=== PATIENT | male | born 1935 | race Caucasian/White ===

== ENCOUNTER → 2018-03-26 15:34 | Outpatient (CLI) | payer MEDICARE, SELFPAY ==
--- NOTE | 2018-03-26 | DI.US.S_ITS ---
PROCEDURE: US ABDOMEN LIMITED INDICATIONS: Bilateral inguinal pain TECHNIQUE: Real-time focused scanning was performed of the inguinal region, with image documentation. COMPARISON: None. FINDINGS: Both inguinal regions were evaluated in the supine and standing positions with and without Valsalva maneuver. No evidence of inguinal hernia seen on either side. IMPRESSION: Negative for inguinal hernia. Source of abdominal pain not seen by this exam. Dictated by: Aubrey Mclean M.D. on 03/26/2018 at 16:15 Approved by: Aubrey Mclean M.D. on 03/26/2018 at 16:16
== END ==
PROVIDERS: PCP Family Medicine; Visit Provider Specialist
DX: R10.2 Pelvic and perineal pain (principal)
CPT/HCPCS: 36415; 76705; 84153

== ENCOUNTER → 2018-08-02 12:44 | Outpatient (CLI) | payer MEDICARE, SELFPAY ==
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
== END ==
PROVIDERS: PCP Family Medicine; Visit Provider Physician Assistant
DX: M25.571 Pain in right ankle and joints of right foot (principal)
CPT/HCPCS: 73610

== ENCOUNTER → 2018-09-07 09:06 | Outpatient (CLI) | payer MEDICARE, SELFPAY ==
[2018-09-07 11:06] LABS: Thyroid Stimulating Hormone 2.66 uIU/mL (0.47-4.68)
[2018-09-12 10:37] LABS: Lipoprofile NMR SEE SEPARATE REPORTS
== END ==
PROVIDERS: PCP Family Medicine; Visit Provider Specialist
DX: E78.2 Mixed hyperlipidemia (principal); I47.1 Supraventricular tachycardia; R00.1 Bradycardia, unspecified
CPT/HCPCS: 36415; 83704; 84443

== ENCOUNTER → 2018-09-19 13:46 | Outpatient (CLI) | payer MEDICARE, SELFPAY ==
[2018-09-19 14:34] LABS: Alanine Aminotransferase 26 IU/L (21-72); Albumin 4.2 g/dL (3.5-5.0); Albumin Globulin Ratio 1.5 (1.0-2.8); Alkaline Phosphatase 60 U/L (38-126); Aspartate Aminotransferase 24 IU/L (17-59); BUN Creatinine Ratio 21.4 (6-22); Bilirubin Total 1.1 mg/dL (0.2-1.3); Blood Urea Nitrogen 15 mg/dL (9-20); Calcium 8.9 mg/dL (8.4-10.2); Carbon Dioxide 25 mmol/L (22-32); Chloride 106 mmol/L (98-107); Estimated Glomerular Filt Rate > 60.0 mL/min (>60); Globulin 2.8 g/dL (1.7-4.1); Glucose 124 mg/dL (80-110); HEMOLYSIS 15 (0-50); Potassium 4.3 mmol/L (3.4-5.1); Sodium 142 mmol/L (137-145)
== END ==
PROVIDERS: Family Provider Family Medicine; PCP Family Medicine; Visit Provider Specialist
DX: I47.1 Supraventricular tachycardia (principal)
CPT/HCPCS: 36415; 80053

== ENCOUNTER 2019-04-22 15:11 | Emergency (ER) | payer MEDICARE, SELFPAY ==
--- NOTE | 2019-04-22 15:19 | DI.CT.S_ITS ---
PROCEDURE: CT HEAD/BRAIN WO CON INDICATIONS: feels funny, dizzy, pain in back of head TECHNIQUE: Noncontrast 4.5 mm thick angled axial sections acquired from the foramen magnum to the vertex, with coronal and sagittal reformats. For radiation dose reduction, the following was used: automated exposure control, adjustment of mA and/or kV according to patient size. COMPARISON: [facility], CT, HEAD WITHOUT CONTRAST, 02/09/2016, 19:19. FINDINGS: Image quality: Excellent. CSF spaces: Basal cisterns are patent. No extra-axial fluid collections. The ventricles are symmetric in size and shape. Brain: No intracranial bleeds or masses. There is cerebral volume loss for age, with resultant ventricular and sulcal prominence. There are periventricular and deep white matter chronic small vessel ischemic changes. There is intracranial internal carotid artery atherosclerosis. Diffuse ectasia of the basal artery is present, as before. Skull and face: Calvarium and visualized facial bones appear intact, without suspicious lesions. Sinuses: Visualized sinuses and mastoids are clear. IMPRESSION: No acute intracranial abnormality. Dictated by: Morena Osuna M.D. on 04/22/2019 at 14:34 Approved by: Morena Osuna M.D. on 04/22/2019 at 14:35
[2019-04-22 15:24] VITALS: BP 148/92; PULSE 59; RESP 22; TEMP 36.7; O2SAT 97; BMI 29.2
[2019-04-22] MEDS: SODIUM CHLORIDE 0.9% 1,000 ML 150 ML IV (16:00)
[2019-04-22 16:01] LABS: Add Manual Diff / Slide Review NO; Basophils Absolute Auto 0 /uL (0-100); Basophils Percent Auto 1.2 % (0-2); Eosinophils Absolute Auto 200 /uL (0-450); Eosinophils Percent Auto 5.8 % (2-4); Hematocrit 42.1 % (41-53); Hemoglobin 14.3 g/dL (13.5-17.5); Lymphocytes Absolute Auto 2100 /uL (1100-4500); Lymphocytes Percent Auto 50.9 % (25-40); Mean Corpuscular HGB Conc 33.9 % (30-36); Mean Corpuscular Hemoglobin 32.2 PG (26-34); Monocytes Absolute Auto 300 /uL (0-900); Monocytes Percent Auto 8.3 % (3-14); Neutrophils Absolute Auto 1400 /uL (1500-7000); Neutrophils Percent Auto 33.8 % (50-75); Platelet Count 193 X10^3/uL (150-400); Red Blood Cell Count 4.43 X10^6/uL (4.5-5.9); Red Cell Distribution Width 13.1 % (11.6-14.8); White Blood Cell Count 4.1 X10^3/uL (4.5-11.0)
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
[2019-04-22 16:13] LABS: BUN Creatinine Ratio 18.8 (6-22); Blood Urea Nitrogen 15 mg/dL (9-20); Calcium 8.7 mg/dL (8.4-10.2); Carbon Dioxide 26 mmol/L (22-32); Chloride 108 mmol/L (98-107); Estimated Glomerular Filt Rate > 60.0 mL/min (>60); Glucose 124 mg/dL (80-110); HEMOLYSIS < 15 (0-50); Sodium 141 mmol/L (137-145)
[2019-04-22 16:16] LABS: Prothrombin Time 11.3 SECONDS (10.1-12.7)
[2019-04-22 16:19] LABS: PTT Partial Thromboplastin Tim 32 SECONDS (26.4-36.2)
[2019-04-22 17:35] VITALS: BP 117/62; BP 123/73; BP 135/74; PULSE 48; PULSE 53; PULSE 56
[2019-04-22 17:50] VITALS: PULSE 56; RESP 17; O2SAT 97
--- NOTE | 2019-04-22 17:53 | DI.MRI.S_ITS ---
PROCEDURE: MR HEAD/BRAIN WO CON INDICATIONS: dizziness TECHNIQUE: Non-contrast axial T1 spin echo, axial T2 fast spin echo, sagittal and axial FLAIR, coronal T2 fast spin echo, axial gradient echo, axial diffusion and ADC through the brain. COMPARISON: [facility], MR, BRAIN WITHOUT CONTRAST, 09/21/2009, 18:41. FINDINGS: Image quality: Excellent. CSF spaces: Ventricles appear symmetric in size and shape. Basal cisterns are patent. No extra-axial fluid collections. Brain: No intracranial bleeds or mass effects. There is cerebral volume loss for age. There are periventricular and deep white matter chronic small vessel ischemic changes. Brainstem appears normal. Diffusion-weighted images show no acute ischemic insults. No chronic ischemic insults. Normal intravascular flow voids are present. Skull and face: Calvarial bone marrow is normal in signal. Orbits are normal. There is right anterior scalp fat signal intensity lesion, however grossly unchanged appearance since 09/21/09 Sinuses: Mild left maxillary sinus disease IMPRESSION: No acute intracranial signal abnormality. No evidence of acute ischemia. Mild left maxillary sinus disease. Dictated by: Kaiser Atkins M.D. on 04/22/2019 at 19:09 Approved by: Kaiser Atkins M.D. on 04/22/2019 at 19:13
[2019-04-22 18:30] VITALS: BP 119/78; PULSE 49; RESP 19; O2SAT 98
[2019-04-22 19:54] VITALS: BP 134/76; PULSE 67; RESP 17; O2SAT 96
== END 2019-04-22 19:56 | disposition home or self-care (01) ==
PROVIDERS: Emergency Provider Emergency Medicine; Family Provider Family Medicine; PCP Family Medicine
DX: R42 Dizziness and giddiness (principal); I10 Essential (primary) hypertension
CPT/HCPCS: 36591; 70450; 70551; 80048; 81003; 85025; 85610; 85730; 93005; 96360; 96361; 99283; 99285

== ENCOUNTER → 2019-07-08 09:04 | Outpatient (CLI) | payer MEDICARE, SELFPAY ==
--- NOTE | 2019-07-08 | DI.ECHO.S_ITS ---
[facility] +---------+ : : [address] [place] : : : : [id number] : : : : Phone: [phone] Echocardiogram Report + + :Name: OREN LEMON Study Date: 07/08/2019 Height: 67 in : :[facility] Exam Location: IS Weight: 204 lb : : Gender: Male BSA: 2.0 m2 : :: 1935 Age: 84 yrs BP: 122/80 mmHg: :Reason For Study: SVT : :Ordering Physician: Carlos : :J[place] Performed By: Sherice Page : + + Interpretation Summary Left ventricular systolic function is low normal with the ejection fraction estimated to be 50-55% with a mild dyssynchronous contraction pattern, consistent with a conduction abnormality, but no focal wall motion abnormalities, and appears similar to the previous study. The left ventricle is borderline dilated with a calculated end-diastolic volume of 123 mL but is likely unchanged from the previous study. Diastolic parameters suggest a relaxation abnormality of the left ventricle, consistent with probable normal filling pressures and is likely unchanged compared to the previous study. The right ventricle is at the upper limits of normal in size and systolic function is borderline reduced but is likely unchanged compared to the previous study. Pulmonary artery pressures cannot be estimated because of the lack of a measurable TR jet velocity but the IVC suggests a CVP of around 3 mmHg. The left atrium is moderately dilated while right atrial size is normal and both are unchanged compared to the previous study. The aortic valve is slightly calcified with mild to moderate aortic regurgitation that is unchanged compared to the previous study. There is mild pulmonic regurgitation that is more prominent. There is no other significant valvular heart disease. The aortic root is mildly dilated and the ascending aorta is moderately enlarged. Both measure slightly larger compared to the previous study. The patient was in sinus bradycardia with heart rates between 40-45 bpm during the exam which is slightly slower compared to the previous study. Procedure: A two-dimensional transthoracic echocardiogram with color flow and Doppler was performed. The study quality was technically adequate. Comparison is made with the echocardiogram of 05/11/2014. The patient was in sinus bradycardia with heart rates between 40-45 bpm during the exam. This is slightly slower compared to the previous study. Left Ventricle: The left ventricle is borderline dilated. With a calculated end-diastolic volume of 123 mL but is likely unchanged from the previous study. There is normal left ventricular wall thickness. Left ventricular systolic function is low normal. The ejection fraction is estimated to be 50- 55%. There is a mild dyssynchronous contraction pattern, consistent with a conduction abnormality. There are no focal wall motion abnormalities. Diastolic parameters suggest a relaxation abnormality of the left ventricle, consistent with probable normal filling pressures. This is unchanged compared to the previous study. Right Ventricle: The right ventricle is at the upper limits of normal in size. Right ventricular systolic function is borderline reduced. This is likely unchanged compared to the previous study. Atria: The left atrium is moderately dilated. Right atrial size is normal. This is unchanged compared to the previous study. There is no Doppler evidence for an interatrial shunt. Mitral Valve: The mitral valve leaflets appear mildly thickened, but open well. There is trace mitral regurgitation. Aortic Valve: The aortic valve is trileaflet. The aortic valve is slightly calcified. The aortic valve opens well. There is mild to moderate aortic regurgitation. This is unchanged compared to the previous study. Tricuspid Valve: The tricuspid valve is normal in structure and function. There is trace tricuspid regurgitation. Pulmonary artery pressures cannot be estimated because of the lack of a measurable TR jet velocity but the IVC suggests a CVP of around 3 mmHg. Pulmonic Valve: The pulmonic valve is not well seen, but is grossly normal. There is mild pulmonic regurgitation. This is more prominent compared to the previous study. There is no other significant valvular heart disease. Great Vessels: The aortic root is mildly dilated. The ascending aorta is moderately enlarged. This is slightly larger compared to the previous study. The pulmonary artery is not well visualized, but is probably normal size. The IVC is of normal diameter and collapses greater than 50% with a sniff. This suggests a low right atrial pressure of 3 mm Hg. Pericardium/ Pleura There is no pericardial effusion. There is no pleural effusion. MMode/2D Measurements & Calculations LVIDd: 5.5 cm LVOT diam: 2.3 cm LVIDs: 3.5 cm Ao root diam: 4.3 cm FS: 36.9 % asc Aorta Diam: 4.4 cm EPSS: 1.5 cm IVSd: 0.97 cm LVPWd: 0.97 cm LV stout. diameter/BSA (cm/m^2): 2.7 LV sys. diameter/BSA (cm/m^2): 1.7 LA A2 area: 27.7 cm2 RA long axis: 5.9 cm LA A4 area: 20.8 cm2 RA area: 19.8 cm2 LA length (vol): 5.3 cm RA vol: 56.6 ml LA vol: 92.3 ml RA : 27.8 ml/m2 LA vol index: 45.3 ml/m2 TAPSE: 2.4 cm Doppler Measurements & Calculations Ao V2 max: 115.8 cm/sec LVOT Max Balta: 85.8 cm/sec Ao V2 mean: 85.8 cm/sec LV V1 max P.9 mmHg Ao max P.4 mmHg LV V1 VTI: 20.7 cm Ao mean P.2 mmHg ANNE(I,D): 3.3 cm2 Ao V2 VTI: 26.0 cm ANNE(V,D): 3.1 cm2 sev ratio: 0.80 ANNE indexed to BSA (cm^2/m^2): 1.6 MV E max balta: 47.1 cm/sec TR max balta: 203.9 cm/sec MV A max balta: 74.0 cm/sec TR max P.6 mmHg MV E/A: 0.64 PA V2 max: 50.5 cm/sec Med Peak E' Balta: 3.1 cm/sec PA V2 mean: 36.1 cm/sec E/E' med: 15.2 PA mean P.56 mmHg Lat Peak E' Balta: 5.2 cm/sec PA Accel Time: 0.12 sec E/E' lat: 9.1 E/e' average: 12.2 MV dec time: 0.40 sec MV P1/2t: 115.7 msec MV P1/2t max balta: 47.4 cm/sec SV(LVOT): 86.7 ml MVA(P1/2t): 1.9 cm2 Reading Physician:PM
[2019-07-08 11:42] LABS: Alanine Aminotransferase 24 IU/L (21-72); Albumin Globulin Ratio 1.4 (1.0-2.8); Alkaline Phosphatase 72 U/L (38-126); Aspartate Aminotransferase 25 IU/L (17-59); BUN Creatinine Ratio 24.3 (6-22); Bilirubin Total 1.1 mg/dL (0.2-1.3); Blood Urea Nitrogen 17 mg/dL (9-20); Calcium 9.2 mg/dL (8.4-10.2); Carbon Dioxide 28 mmol/L (22-32); Chloride 105 mmol/L (98-107); Estimated Glomerular Filt Rate > 60.0 mL/min (>60); Globulin 2.9 g/dL (1.7-4.1); Glucose 99 mg/dL (80-110); HEMOLYSIS < 15 (0-50); Magnesium 2.1 mg/dL (1.6-2.3); Potassium 4.9 mmol/L (3.4-5.1); Sodium 139 mmol/L (137-145); Total Protein 6.9 g/dL (6.3-8.2)
[2019-07-10 10:33] LABS: Lipoprofile NMR SEE SEPARATE REPORTS
== END ==
PROVIDERS: PCP Family Medicine; Visit Provider Specialist
DX: I35.1 Nonrheumatic aortic (valve) insufficiency (principal); I37.1 Nonrheumatic pulmonary valve insufficiency; I47.1 Supraventricular tachycardia; E78.2 Mixed hyperlipidemia; I10 Essential (primary) hypertension
CPT/HCPCS: 36415; 80053; 83704; 83735; 93306

== ENCOUNTER → 2020-04-23 07:43 | Outpatient (CLI) | payer MEDICARE, SELFPAY ==
[2020-04-23 08:27] LABS: Add Manual Diff / Slide Review NO; Basophils Absolute Auto 0 /uL (0-100); Basophils Percent Auto 0.9 % (0-2); Eosinophils Absolute Auto 400 /uL (0-450); Eosinophils Percent Auto 7.6 % (2-4); Hematocrit 41.8 % (41-53); Hemoglobin 14.7 g/dL (13.5-17.5); Lymphocytes Absolute Auto 3100 /uL (1100-4500); Lymphocytes Percent Auto 54.1 % (25-40); Mean Corpuscular HGB Conc 35.2 % (30-36); Mean Corpuscular Hemoglobin 33.7 PG (26-34); Mean Corpuscular Volume 95.6 fL (80-100); Monocytes Absolute Auto 500 /uL (0-900); Monocytes Percent Auto 8.4 % (3-14); Neutrophils Absolute Auto 1700 /uL (1500-7000); Platelet Count 173 X10^3/uL (150-400); Red Blood Cell Count 4.38 X10^6/uL (4.5-5.9); Red Cell Distribution Width 12.8 % (11.6-14.8); White Blood Cell Count 5.7 X10^3/uL (4.5-11.0)
[2020-04-23 08:44] LABS: Alanine Aminotransferase 16 IU/L (<50); Albumin 3.7 g/dL (3.5-5.0); Albumin Globulin Ratio 1.4 (1.0-2.8); Alkaline Phosphatase 65 U/L (38-126); Aspartate Aminotransferase 21 IU/L (17-59); BUN Creatinine Ratio 28.4 (6-22); Bilirubin Total 1.2 mg/dL (0.2-1.3); Blood Urea Nitrogen 19 mg/dL (9-20); Calcium 9.2 mg/dL (8.4-10.2); Carbon Dioxide 25 mmol/L (22-32); Chloride 109 mmol/L (98-107); Cholesterol 133 mg/dL (140-199); Estimated Glomerular Filt Rate > 60.0 mL/min (>60); Globulin 2.6 g/dL (1.7-4.1); Glucose 103 mg/dL (80-110); HDL Cholesterol 48 mg/dL (40-60); HEMOLYSIS < 15 (0-50); LDL Cholesterol Calculated 70 mg/dL (<100); Potassium 4.4 mmol/L (3.4-5.1); Sodium 139 mmol/L (137-145); Total Protein 6.3 g/dL (6.3-8.2); Triglycerides 75 mg/dL (35-150)
[2020-04-23 08:55] LABS: Vitamin D 25 Hydroxy (D3) 22.3 ng/mL (30.0-100.0)
[2020-04-23 09:10] LABS: TSH w/ Reflex to FT4 3.03 uIU/mL (0.47-4.68)
[2020-04-23 09:11] LABS: Prostate Specific Antigen Scrn 2.34 ng/mL (0.1-4.0)
== END ==
PROVIDERS: PCP Family Medicine; Referring Provider Family Medicine; Visit Provider Family Medicine
DX: Z12.5 Encounter for screening for malignant neoplasm of prostate (principal); Z13.220 Encounter for screening for lipoid disorders; Z13.29 Encounter for screening for other suspected endocrine disorder; E55.9 Vitamin D deficiency, unspecified; R55 Syncope and collapse; E78.5 Hyperlipidemia, unspecified; I10 Essential (primary) hypertension
CPT/HCPCS: 36415; 80053; 80061; 82306; 84443; 85025; G0103

== ENCOUNTER → 2020-07-27 07:41 | Outpatient (CLI) | payer MEDICARE, SELFPAY | PROVIDERS: PCP Family Medicine; Referring Provider Specialist; Visit Provider Specialist | DX: N40.0 Benign prostatic hyperplasia without lower urinary tract symptoms (principal) | CPT/HCPCS: 36415; 84153 ==

== ENCOUNTER → 2020-08-26 08:05 | Outpatient (CLI) | payer MEDICARE, SELFPAY ==
[2020-08-26 09:36] LABS: Alanine Aminotransferase 19 IU/L (<50); Albumin 3.8 g/dL (3.5-5.0); Albumin Globulin Ratio 1.5 (1.0-2.8); Alkaline Phosphatase 72 U/L (38-126); Aspartate Aminotransferase 25 IU/L (17-59); BUN Creatinine Ratio 26.6 (6-22); Bilirubin Total 1.1 mg/dL (0.2-1.3); Blood Urea Nitrogen 17 mg/dL (9-20); Calcium 8.9 mg/dL (8.4-10.2); Carbon Dioxide 31 mmol/L (22-32); Chloride 106 mmol/L (98-107); Estimated Glomerular Filt Rate > 60.0 mL/min (>60); Globulin 2.6 g/dL (1.7-4.1); Glucose 101 mg/dL (80-110); HEMOLYSIS < 15 (0-50); Magnesium 2.2 mg/dL (1.6-2.3); Potassium 4.4 mmol/L (3.4-5.1); Sodium 138 mmol/L (137-145); Total Protein 6.4 g/dL (6.3-8.2)
[2020-09-07 14:56] LABS: LDL Particle SEE SEPARATE REPORTS
== END ==
PROVIDERS: PCP Family Medicine; Referring Provider Family Medicine; Visit Provider Specialist
DX: E78.2 Mixed hyperlipidemia (principal); I47.1 Supraventricular tachycardia; I10 Essential (primary) hypertension
CPT/HCPCS: 36415; 80053; 80061; 83704; 83735

== ENCOUNTER → 2021-08-24 10:09 | Outpatient (CLI) | payer MEDICARE, SELFPAY ==
[2021-08-24 11:47] LABS: Prostate Specific Antigen 4.22 ng/mL (0.10-4.00)
== END ==
PROVIDERS: PCP Family Medicine; Referring Provider Specialist; Visit Provider Specialist
DX: N40.0 Benign prostatic hyperplasia without lower urinary tract symptoms (principal); Z80.42 Family history of malignant neoplasm of prostate
CPT/HCPCS: 36415; 84153

== ENCOUNTER → 2021-09-09 08:43 | Outpatient (CLI) | payer MEDICARE, SELFPAY ==
[2021-09-09 10:07] LABS: Alanine Aminotransferase 15 IU/L (<50); Albumin 3.7 g/dL (3.5-5.0); Albumin Globulin Ratio 1.4 (1.0-2.8); Alkaline Phosphatase 61 U/L (38-126); Aspartate Aminotransferase 19 IU/L (17-59); BUN Creatinine Ratio 18.7 (6-22); Blood Urea Nitrogen 14 mg/dL (9-20); Calcium 8.9 mg/dL (8.4-10.2); Carbon Dioxide 29 mmol/L (22-32); Chloride 106 mmol/L (98-107); Cholesterol 147 mg/dL (140-199); Estimated Glomerular Filt Rate > 60.0 mL/min (>60); Globulin 2.6 g/dL (1.7-4.1); Glucose 104 mg/dL (80-110); HDL Cholesterol 57 mg/dL (40-60); HEMOLYSIS < 15 (0-50); LDL Cholesterol Calculated 74 mg/dL (<100); Potassium 4.2 mmol/L (3.4-5.1); Sodium 138 mmol/L (137-145); Total Protein 6.3 g/dL (6.3-8.2); Triglycerides 79 mg/dL (35-150)
== END ==
PROVIDERS: PCP Family Medicine; Referring Provider Physician Assistant Medical; Visit Provider Physician Assistant Medical
DX: E78.00 Pure hypercholesterolemia, unspecified (principal)
CPT/HCPCS: 36415; 80053; 80061

== ENCOUNTER → 2021-09-15 15:45 | Outpatient (CLI) | payer MEDICARE, SELFPAY ==
--- NOTE | 2021-09-15 | DI.ECHO.S_ITS ---
[facility] +---------+ : : [address] : : : : [id number] : : : : Phone: [phone]+ Echocardiogram Report + + :Name: OREN LEMON Study Date: 09/15/2021 Height: 68 in : :[facility] ReadingLocation: Weight: 182 lb : : Gender: Male BSA: 2.0 m2 : :: 1935 Age: 86 yrs BP: 136/85 mmHg: :Reason For Study: DILATED CARDIOMYOPATHY : :Ordering Physician: MICHAEL, : :MANGO Performed By: Kaci Voss : :Referring: MANGO RODRIGUEZ : + + Interpretation Summary Left ventricular systolic function remains at the lower limits of normal with an estimated ejection fraction of 50 to 55% with borderline global hypokinesis but no obvious focal wall motion abnormality. Left ventricular size and wall thickness appear normal and are likely unchanged from the previous exam. There is a probable diastolic relaxation abnormality with probable normal filling pressures that are likely unchanged from the previous exam. The right ventricle is normal in size with systolic function at the lower limits of normal but unchanged from the previous study. Right ventricular systolic pressure is estimated at 23 mmHg with a CVP of 3 mmHg, and is likely unchanged from the previous exam. Both atria are normal in size. Left atrial size has significantly decreased since the previous study. The aortic valve is mildly calcified with mild aortic regurgitation that is unchanged to slightly less prominent compared to the previous study. There is mild pulmonic valve regurgitation that is also unchanged from the previous exam. The aortic root and ascending aorta are mild to moderately enlarged but unchanged from the previous study. Patient was in sinus bradycardia at 52-63 bpm which is slightly faster compared to the previous exam. Procedure: A two-dimensional transthoracic echocardiogram with color flow and Doppler was performed. The study quality was technically adequate. Comparison is made with the echocardiogram of 07/18/2019. The patient was in sinus bradycardia with heart rates between 52-63 bpm during the exam. Left Ventricle: The left ventricle is normal in size. The estimated left ventricular end diastolic volume is 71 ml. There is mild concentric left ventricular hypertrophy. Left ventricular systolic function is low normal. The ejection fraction is estimated to be 50-55%. There is borderline global hypokinesis of the left ventricle. There are no focal wall motion abnormalities. This is unchanged compared to the previous study. Diastolic parameters suggest a relaxation abnormality of the left ventricle, consistent with probable normal filling pressures. This is unchanged compared to the previous study. Right Ventricle: The right ventricle is normal size. Right ventricular systolic function is at the lower limits of normal. This is unchanged compared to the previous study. Atria: Both atria are normal in size. The left atrium has significantly decreased in size since the prior echo exam. There is no Doppler evidence for an interatrial shunt. Mitral Valve: The mitral valve leaflets appear mildly thickened, but open well. There is trace mitral regurgitation. Aortic Valve: The aortic valve is trileaflet. The aortic valve is mildly calcified. The aortic valve opens well. There is no aortic valve stenosis. There is mild aortic regurgitation. This is unchanged to slightly less prominent compared to the previous study. Tricuspid Valve: The tricuspid valve is normal in structure and function. There is trace tricuspid regurgitation. The right ventricular systolic pressure is estimated to be at least 23 mmHg based on an estimated right atrial pressure of 3 mm Hg. Pulmonic Valve: The pulmonic valve leaflets are thin and pliable; valve motion is normal. There is mild pulmonic regurgitation. This is unchanged compared to the previous study. Great Vessels: The aortic root is mildly dilated. The ascending aorta is moderately enlarged. This is unchanged compared to the previous study. The IVC is of normal diameter and collapses greater than 50% with a sniff. This suggests a low right atrial pressure of 3 mm Hg. Pericardium/ Pleura There is no pericardial effusion. There is no pleural effusion. MMode/2D Measurements & Calculations LVIDd: 4.9 cm LVOT diam: 2.1 cm LVIDs: 3.0 cm Ao root diam: 4.2 cm FS: 38.3 % asc Aorta Diam: 4.3 cm IVSd: 1.2 cm LVPWd: 1.1 cm LV stout. diameter/BSA (cm/m^2): 2.5 LV sys. diameter/BSA (cm/m^2): 1.6 LA A2 area: 14.6 cm2 RA long axis: 5.4 cm LA A4 area: 15.4 cm2 RA area: 18.1 cm2 LA length (vol): 5.1 cm RA vol: 51.5 ml LA vol: 37.6 ml RA : 26.2 ml/m2 LA vol index: 19.1 ml/m2 IVC diam: 1.1 cm RVD1 (basal): 3.1 cm TAPSE: 1.6 cm Doppler Measurements & Calculations Ao V2 max: 125.4 cm/sec LVOT Max Balta: 79.9 cm/sec Ao V2 mean: 86.6 cm/sec LV V1 max P.6 mmHg Ao max P.3 mmHg LV V1 VTI: 16.3 cm Ao mean P.4 mmHg ANNE(I,D): 2.2 cm2 Ao V2 VTI: 25.4 cm ANNE(V,D): 2.2 cm2 sev ratio: 0.64 ANNE indexed to BSA (cm^2/m^2): 1.1 MV E max balta: 44.5 cm/sec TR max balta: 223.0 cm/sec MV A max balta: 76.8 cm/sec TR max P.9 mmHg MV E/A: 0.58 PA V2 max: 94.7 cm/sec Med Peak E' Balta: 4.2 cm/sec PA V2 mean: 67.7 cm/sec E/E' med: 10.7 PA mean P.1 mmHg Lat Peak E' Balta: 4.8 cm/sec PA pr(Accel): 41.3 mmHg E/E' lat: 9.2 E/e' average: 9.9 MV dec time: 0.33 sec SV(LVOT): 56.1 ml Reading Physician:08:57 AM
== END ==
PROVIDERS: PCP Family Medicine; Referring Provider Specialist; Visit Provider Specialist
DX: I42.0 Dilated cardiomyopathy (principal); I35.1 Nonrheumatic aortic (valve) insufficiency; I37.1 Nonrheumatic pulmonary valve insufficiency; I77.810 Thoracic aortic ectasia
CPT/HCPCS: 93306

== ENCOUNTER → 2021-11-22 11:53 | Outpatient (CLI) | payer MEDICARE, SELFPAY ==
[2021-11-22 13:48] LABS: Prostate Specific Antigen Scrn 3.82 ng/mL (0.1-4.0)
== END ==
PROVIDERS: PCP Family Medicine; Referring Provider Specialist; Visit Provider Specialist
DX: R97.20 Elevated prostate specific antigen [PSA] (principal)
CPT/HCPCS: 36415; G0103

== ENCOUNTER → 2022-05-29 15:27 | Outpatient (CLI) | payer MEDICARE, SELFPAY ==
[2022-05-29 16:54] LABS: Prostate Specific Antigen 3.75 ng/mL (0.10-4.00)
== END ==
PROVIDERS: PCP Family Medicine; Referring Provider Specialist; Visit Provider Specialist
DX: R97.20 Elevated prostate specific antigen [PSA] (principal)
CPT/HCPCS: 36415; 84153

== ENCOUNTER 2022-09-16 09:30 | Emergency (ER) | payer MEDICARE, SELFPAY ==
[2022-09-16] VITALS (10 sets, daily range): BP systolic 136–161; BP diastolic 74–88; PULSE 52–68; RESP 16–25; TEMP 36.9; O2SAT 93–97; BMI 26.4
--- NOTE | 2022-09-16 09:56 | DI.RAD.S_ITS ---
PROCEDURE: XR CHEST 1V INDICATIONS: chest pain TECHNIQUE: One view of the chest was acquired. COMPARISON: [facility], CHEST 2 VIEW, 09/09/2009, 12:43. [facility], CHEST 1 VIEW, 02/20/2011, 17:10. FINDINGS: Surgical changes and devices: Left axillary clips are seen. Lungs and pleura: On this semiupright portable chest examination, no large pneumothorax or large pleural effusions are seen. No focal infiltrates are seen. Low lung volumes are noted. This causes a crowded appearance to the lung markings and limits evaluation. Mediastinum: The cardiac contours are within normal limits. The aorta demonstrates calcification and tortuosity. Bones and chest wall: No suspicious bony lesions. Age-appropriate bony degenerative changes are seen. Overlying soft tissues appear unremarkable. IMPRESSION: Low lung volumes, without an acute abnormality seen. Dictated by: Lauro Camara M.D. on 09/16/2022 at 9:39 Approved by: Lauro Camara M.D. on 09/16/2022 at 9:40
[2022-09-16 10:13] LABS: Add Manual Diff / Slide Review NO; Basophils Absolute Auto 100 /uL (0-100); Eosinophils Absolute Auto 300 /uL (0-450); Eosinophils Percent Auto 5.7 % (2-4); Hematocrit 41.6 % (41-53); Hemoglobin 14.4 g/dL (13.5-17.5); Lymphocytes Absolute Auto 2500 /uL (1100-4500); Lymphocytes Percent Auto 50.2 % (25-40); Mean Corpuscular HGB Conc 34.7 % (30-36); Mean Corpuscular Hemoglobin 33.2 PG (26-34); Mean Corpuscular Volume 95.8 fL (80-100); Monocytes Absolute Auto 300 /uL (0-900); Neutrophils Absolute Auto 1800 /uL (1500-7000); Neutrophils Percent Auto 36.1 % (50-75); Platelet Count 162 X10^3/uL (150-400); Red Blood Cell Count 4.34 X10^6/uL (4.5-5.9); Red Cell Distribution Width 12.8 % (11.6-14.8)
[2022-09-16 10:30] LABS: Alanine Aminotransferase 19 IU/L (<50); Albumin 4.1 g/dL (3.5-5.0); Albumin Globulin Ratio 1.3 (1.0-2.8); Alkaline Phosphatase 66 U/L (38-126); Aspartate Aminotransferase 21 IU/L (17-59); BUN Creatinine Ratio 24.6 (6-22); Bilirubin Total 1.3 mg/dL (0.2-1.3); Blood Urea Nitrogen 17 mg/dL (9-20); Calcium 8.8 mg/dL (8.4-10.2); Carbon Dioxide 25 mmol/L (22-32); Chloride 104 mmol/L (98-107); Creatine Kinase 115 U/L (55-170); Estimated Glomerular Filt Rate > 60 mL/min (>60); Globulin 3.1 g/dL (1.7-4.1); Glucose 142 mg/dL (80-110); HEMOLYSIS < 15 (0-50); Lipase 74 U/L (23-300); Magnesium 2.1 mg/dL (1.6-2.3); Potassium 4.2 mmol/L (3.4-5.1); Sodium 138 mmol/L (137-145); Total Protein 7.2 g/dL (6.3-8.2)
[2022-09-16 10:41] LABS: Troponin I < 0.012 ng/mL (0.01-0.034)
[2022-09-16 10:45] LABS: CKMB % Relative Index 2.4 % (1.5-5.0); Creatine Kinase MB 2.76 ng/mL (<2.37)
--- NOTE | 2022-09-16 11:32 | ED_ITS ---
HPI - General Adult General Chief complaint: Dizziness Stated complaint: dizzy/disoriented eye pain 1 hour Time Seen by Provider: 09/16/22 10:04 Source: patient Mode of arrival: Ambulatory History of Present Illness HPI narrative: 87-year-old gentleman with a history of hyperlipidemia and recurrent episodes of near syncope. He was seen by Cardiology almost a year ago for similar complaints. He states that he went out for coffee this morning was feeling well he was standing up in the kitchen making some toast when he had a sense of being lightheaded. He sat down and it was better. After another hour of resting he still felt slightly off and comes in for further evaluation. He reports no headaches, no other acute neurologic findings no speech abnormalities no change to baseline peripheral neuropathy. Reports no palpitations, no dyspnea. He notes no recent fever, cough, chills, abdominal pain, headaches. 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 Related Data Home Medications Medication Instructions Recorded Confirmed atorvastatin 20 mg tablet 20 mg PO DAILY 04/22/19 06/06/22 Previous Rx's Medication Instructions Recorded Parking Permit... See Rx Instructions .Route 01/28/21 .COMPLEX #1 unit alfuzosin 10 mg tablet,extended 10 mg PO DAILY #90 tabs 08/30/21 release 24 hr (Uroxatral) sildenafil (pulm.hypertension) 20 20 mg PO .daily as needed #20 tabs 09/06/21 mg tablet Allergies Allergy/AdvReac Type Severity Reaction Status Date / Time No Known Drug Allergies Allergy Verified 09/16/22 10:07 Review of Systems Review of Systems Narrative: Remainder of complete review of systems is otherwise unremarkable except for that included in the HPI. Patient History Medical History Arthritis BPH loc w/o ur obs/LUTS Constipation Diverticulosis of large intestine without perforation or abscess with bleeding (09/30/17) Elevated PSA Erectile dysfunction Family history of prostate cancer Near syncope Skin cancer Spinal stenosis, lumbar Tubular adenoma of colon (09/30/17) Vertigo Vitamin D deficiency Surgical History H/O: vasectomy Status post appendectomy Status post hernia repair Status post spinal surgery Social History Smoking Status: Never smoker Smoking Status: Never smoker alcohol intake frequency: holidays/special occasions only Substance Use Type: does not use Exam Initial Vital Signs Initial Vital Signs: Vital Signs Pulse Rate 63 09/16/22 09:48 Blood Pressure 161/83 H 09/16/22 09:48 Pulse Oximetry 93 09/16/22 09:48 General: Healthy appearing, in no acute distress. Able to give a complete and coherent history. Well-nourished well-developed HEENT: Moist mucous membranes, normal sclera with reactive pupils, tympanic membranes are pearly resendiz Neck: No JVD, supple Respiratory: Lungs are clear to auscultation, no wheezing no rales no rhonchi. Full and symmetrical air movement Cardiac: Regular rate and rhythm no murmurs no bruits Chest: He has a large lipoma over his sternoclavicular notch. He also has a 1 cm in diameter actinic keratosis at to the left side of his breast that he is concerned has been growing recently Abdomen: Soft, nontender, good bowel tones, no flank pain Skin: Warm and dry, no rashes Neurologic: Grossly neurologically intact with no obvious asymmetries or abnormalities, distal peripheral neuropathy unchanged from baseline. Extremities: No trauma, well perfused, no lower extremity edema Psych: Cooperative, appropriate insight and affect Course Orders Ordered: ED Orders 09/16/22 09:56 XR chest 1V Stat 09/16/22 10:04 EKG-12 Lead Stat 09/16/22 10:06 Complete Blood Count AUTO DIFF Stat Comprehensive Metabolic Panel Stat Lipase Stat Magnesium Stat Troponin & CK Cardiac Panel Stat Vital Signs Vital signs: Vital Signs - 8 hr 09/16/22 09:57 09/16/22 09:48 09/16/22 09:48 Temperature 98.4 F Pulse Rate 62 63 Respiratory Rate 16 Blood Pressure 161/83 H 161/83 H Pulse Oximetry 97 93 Oxygen Delivery Method Room Air 09/16/22 10:00 09/16/22 10:08 09/16/22 10:08 Temperature Pulse Rate 60 57 L Respiratory Rate 20 21 Blood Pressure 149/85 H Pulse Oximetry 97 96 Oxygen Delivery Method 09/16/22 10:30 09/16/22 10:31 09/16/22 10:31 Temperature Pulse Rate 54 L 55 L Respiratory Rate 19 20 Blood Pressure 136/74 Pulse Oximetry 97 97 Oxygen Delivery Method Medical Decision Making Lab Data Result diagrams: 09/16/22 10:06 09/16/22 10:06 Labs: Lab Results 09/16/22 09/16/22 Range/Units 10:06 10:06 WBC 5.0 (4.5-11.0) X10^3/uL RBC 4.34 L (4.5-5.9) X10^6/uL Hgb 14.4 (13.5-17.5) g/dL Hct 41.6 (41-53) % MCV 95.8 (80-100) fL MCH 33.2 (26-34) PG MCHC 34.7 (30-36) % RDW 12.8 (11.6-14.8) % Plt Count 162 (150-400) X10^3/uL Neut % (Auto) 36.1 L (50-75) % Lymph % (Auto) 50.2 H (25-40) % [place] % (Auto) 7.0 (3-14) % Eos % (Auto) 5.7 H (2-4) % Baso % (Auto) 1.0 (0-2) % Neut # (Auto) 1800 (1721-3739) /uL Lymph # (Auto) 2500 (1289-0018) /uL [place] # (Auto) 300 (0-900) /uL Eos # (Auto) 300 (0-450) /uL Baso # (Auto) 100 (0-100) /uL Sodium 138 (137-145) mmol/L Potassium 4.2 (3.4-5.1) mmol/L Chloride 104 (98-107) mmol/L Carbon Dioxide 25 (22-32) mmol/L BUN 17 (9-20) mg/dL Creatinine 0.69 (0.66-1.25) mg/dL Estimated GFR > 60 (>60) mL/min BUN/Creatinine Ratio 24.6 H (6-22) Glucose 142 H (80-110) mg/dL Calcium 8.8 (8.4-10.2) mg/dL Magnesium 2.1 (1.6-2.3) mg/dL Total Bilirubin 1.3 (0.2-1.3) mg/dL AST 21 (17-59) IU/L ALT 19 (<50) IU/L Alkaline Phosphatase 66 (38-126) U/L Total Creatine Kinase 115 (55-170) U/L CK-MB (CK-2) 2.76 H (<2.37) ng/mL CK-MB (CK-2) Rel Index 2.4 (1.5-5.0) % Troponin I < 0.012 (0.01-0.034) ng/mL Total Protein 7.2 (6.3-8.2) g/dL Albumin 4.1 (3.5-5.0) g/dL Globulin 3.1 (1.7-4.1) g/dL Albumin/Globulin Ratio 1.3 (1.0-2.8) Lipase 74 (23-300) U/L ECG Data Interpretation: Sinus bradycardia at a rate of 56 Left axis deviation No acute ischemia or STEMI criteria MDM Narrative Medical decision making narrative: 87-year-old gentleman with a brief episode of dizziness/near syncope earlier today. Workup is entirely reassuring as is evaluation in the emergency department. Symptoms have resolved. He has had recurrent episodes of brief episodes of syncope and has had full workup. There is no evidence of acute co ronary syndrome, infection or sepsis, TIA or stroke. No evidence of significant arrhythmia. He has been in sinus rhythm in the upper 50s when he is sitting and upper 60s when he is active or standing. There is no evidence of orthostasis, I am not seeing signs of benign positional vertigo. At this time symptoms are improved and he is safe for home discharge. Questions are answered Discharge Plan Departure Patient Disposition: Home Clinical Impression: Near syncope Instructions: DI for Syncope in Adults (Fainting) Activity Restrictions/Additional Instructions: Thank you for coming in today Your workup and evaluation in the emergency department was very reassuring. There is no evidence of stroke, heart attack, severe rhythm abnormality, infection, liver kidney difficulties or other life-threatening explanation for the brief episode of dizziness/near syncope that you experienced this morning. It does look like this has been an intermittent issue for a number of years. At this time, I am going to recommend that you continue all of your usual medications and that it is safe for you to go home. Regarding the small skin change on the side of your left breast, please follow- up with Dr. Lyons. This is not a melanoma. Does not have to be removed but he may find that it continues to grow it is not. Prescriptions: No Action Parking Permit... See Rx Instructions .ROUTE .COMPLEX Qty: 1 0RF Rx Instructions: use as needed for parking sildenafil (pulm.hypertension) 20 mg tablet 20 mg PO .daily as needed Qty: 20 5RF Rx Instructions: Take 1-3 tablets by mouth daily as directed and as needed. atorvastatin 20 mg tablet 20 mg PO DAILY alfuzosin [Uroxatral] 10 mg tablet extended release 24 hr 10 mg PO DAILY Qty: 90 3RF Rx Instructions: administer after the same meal each day Referrals: Moy Lyons DO [Primary Care Provider] -
== END 2022-09-16 11:59 | disposition home or self-care (01) ==
PROVIDERS: Emergency Provider Emergency Medicine; PCP Family Medicine
DX: R55 Syncope and collapse (principal); R42 Dizziness and giddiness; R07.9 Chest pain, unspecified
CPT/HCPCS: 36415; 71045; 80053; 82550; 82553; 83690; 83735; 84484; 85025; 93005; 93010; 99283; 99284

== ENCOUNTER → 2023-05-19 09:08 | Outpatient (CLI) | payer MEDICARE, SELFPAY ==
[2023-05-19 10:54] LABS: Influenza A - CEPHEID Flu A NEGATIVE (NEGATIVE); Influenza B - CEPHEID Flu B NEGATIVE (NEGATIVE); Respiratory Syncytial Virus Negative (Negative)
[2023-05-19 10:55] LABS: COVID-19 CEPHEID 4-PLEX PCR POSITIVE (Negative)
== END ==
PROVIDERS: PCP Family Medicine; Visit Provider Physician Assistant
DX: U07.1 COVID-19 (principal); J06.9 Acute upper respiratory infection, unspecified; Z20.822 Contact with and (suspected) exposure to COVID-19
CPT/HCPCS: 0241U

== ENCOUNTER → 2023-09-26 07:57 | Outpatient (CLI) | payer MEDICARE, SELFPAY ==
[2023-09-26 09:47] LABS: Add Manual Diff / Slide Review NO; Basophils Absolute Auto 0 /uL (0-100); Eosinophils Absolute Auto 300 /uL (0-450); Eosinophils Percent Auto 6.6 % (2-4); Hematocrit 40.7 % (41-53); Hemoglobin 14.1 g/dL (13.5-17.5); Lymphocytes Absolute Auto 2600 /uL (1100-4500); Lymphocytes Percent Auto 56.1 % (25-40); Mean Corpuscular HGB Conc 34.6 % (30-36); Mean Corpuscular Hemoglobin 33.5 PG (26-34); Mean Corpuscular Volume 96.8 fL (80-100); Monocytes Absolute Auto 400 /uL (0-900); Neutrophils Absolute Auto 1300 /uL (1500-7000); Neutrophils Percent Auto 27.3 % (50-75); Platelet Count 162 X10^3/uL (150-400); Red Blood Cell Count 4.21 X10^6/uL (4.5-5.9); Red Cell Distribution Width 12.5 % (11.6-14.8); White Blood Cell Count 4.7 X10^3/uL (4.5-11.0)
[2023-09-26 09:50] LABS: Alanine Aminotransferase 20 IU/L (<50); Albumin 3.7 g/dL (3.5-5.0); Albumin Globulin Ratio 1.4 (1.0-2.8); Alkaline Phosphatase 60 U/L (38-126); Aspartate Aminotransferase 29 IU/L (17-59); BUN Creatinine Ratio 24.3 (6-22); Bilirubin Total 1.3 mg/dL (0.2-1.3); Blood Urea Nitrogen 17 mg/dL (9-20); Carbon Dioxide 27 mmol/L (22-32); Chloride 108 mmol/L (98-107); Cholesterol 148 mg/dL (140-199); Estimated Glomerular Filt Rate > 60 mL/min (>60); Globulin 2.6 g/dL (1.7-4.1); Glucose 88 mg/dL (80-110); HDL Cholesterol 58 mg/dL (40-60); HEMOLYSIS < 15 (0-50); LDL Cholesterol Calculated 73 mg/dL (<100); Potassium 4.2 mmol/L (3.4-5.1); Sodium 138 mmol/L (137-145); Total Protein 6.3 g/dL (6.3-8.2); Triglycerides 83 mg/dL (35-150)
== END ==
PROVIDERS: PCP Family Medicine; Referring Provider Family Medicine; Visit Provider Family Medicine
DX: E78.5 Hyperlipidemia, unspecified (principal)
CPT/HCPCS: 36415; 80053; 80061; 85025

== ENCOUNTER → 2023-12-03 06:58 | Outpatient (CLI) | payer MEDICARE, SELFPAY ==
[2023-12-03 09:00] LABS: Prostate Specific Antigen 4.68 ng/mL (0.10-4.00)
== END ==
PROVIDERS: PCP Family Medicine; Referring Provider Specialist; Visit Provider Specialist
DX: R97.20 Elevated prostate specific antigen [PSA] (principal); N40.0 Benign prostatic hyperplasia without lower urinary tract symptoms
CPT/HCPCS: 36415; 84153

== ENCOUNTER 2024-01-03 07:24 | Day surgery (SDC) | payer MEDICARE, SELFPAY ==
[2024-01-03] MEDS: LACTATED RINGERS 1,000 ML 100 ML IV (07:40)
[2024-01-03 07:53] VITALS: BP 137/84; PULSE 88; RESP 16; TEMP 36.1
--- NOTE | 2024-01-03 08:03 | PM.HP.1 ---
History of Present Illness History of Present Illness Date Patient Seen: 01/03/24 Time Patient Seen: 08:03 Chief complaint: Colonoscopy Narrative: Josue is an 80-year-old man who is here for colonoscopy. His last was in 2020 in [place] and some tubular adenomas were removed. FORMERLY [facility], 1928–1983 Medical History (Updated 01/03/24 @ 08:03 by Jamari Juares MD) BPH w urinary obs/LUTS Numbness of feet Bilateral chronic knee pain Insomnia History of melanoma Elevated PSA Erectile dysfunction Family history of prostate cancer Skin cancer Arthritis Constipation Vitamin D deficiency Near syncope Spinal stenosis, lumbar Diverticulosis of large intestine without perforation or abscess with bleeding (09/30/17) Tubular adenoma of colon (09/30/17) Vertigo Surgical History Hx of colonoscopy with polypectomy H/O: vasectomy Status post spinal surgery Status post hernia repair Status post appendectomy Social History Smoking Status: Former smoker alcohol intake: current Meds Home Medications and Allergies Home Medications Medication Instructions Recorded Confirmed Type atorvastatin 20 mg tablet 20 mg PO DAILY 04/22/19 01/03/24 History Parking Permit... See Rx Instructions .Route 01/28/21 01/03/24 Rx .COMPLEX #1 unit alfuzosin 10 mg tablet,extended 10 mg PO DAILY #90 tabs 12/13/23 01/03/24 Rx release 24 hr sildenafil (pulm.hypertension) 20 20 mg PO .daily as needed #60 tabs 12/13/23 01/03/24 Rx mg tablet Allergies Allergy/AdvReac Type Severity Reaction Status Date / Time No Known Drug Allergies Allergy Verified 01/03/24 07:37 Exam Vital Signs (past 8 hours): - 01/03/24 07:53 Temperature 97 F L Pulse Rate 88 Respiratory Rate 16 Blood Pressure 137/84 Oxygen Delivery Method Room Air Oxygen Delivery Method Room Air Const General: healthy appearing Assessment & Plan Assessment and plan (1) Personal history of colonic polyps: Status: Acute Plan We reviewed the risks and benefits of colonoscopy for history of colon polyps and he would like to proceed.
[2024-01-03 08:40] VITALS: BP 115/83; PULSE 73; RESP 16; TEMP 36.8; O2SAT 98
--- NOTE | 2024-01-03 08:40 | PM.OP.COLON ---
Operative Date/Time/Diagnoses Date of procedure: 01/03/24 Time of procedure: 08:40 Pre-op diagnosis: History of polyps Post-op diagnosis: same Procedure & Clinicians Study performed: Colonoscopy Same procedure as scheduled: Yes Surgeon: Jamari Juares Procedure Notes Procedure in detail: Surgeon: Jamari Juares MD Anesthesia: Danie Garber D.O. Procedure: The patient was brought to the endoscopy suite, placed in left lateral decubitus position. The patient was connected to monitoring devices. A time-out was performed. Sedation was administered. Once the patient was adequately sedated, a digital rectal exam was performed and was normal. The scope was then inserted and advanced to the cecum where the appendiceal orifice was identified and photographed. The scope was then slowly withdrawn over greater than 6 minutes. The mucosa was thoroughly inspected. No abnormalities were found. The scope was retroflexed in the rectum. Internal hemorrhoids were noted. The scope was straightened and removed. The patient was awakened and brought to recovery. Scope withdrawal time: 7 minutes Sedation time: 16 minutes EBL: 0 Findings: Normal colon Post-procedure Disposition: PACU
[2024-01-03 08:45] VITALS: BP 132/86; PULSE 69; RESP 16; O2SAT 98
[2024-01-03 08:50] VITALS: BP 122/72; PULSE 68; RESP 16; O2SAT 98
[2024-01-03 09:01] VITALS: BP 135/75; PULSE 78; RESP 16; TEMP 36.2; O2SAT 98
== END 2024-01-03 09:08 | disposition home or self-care (01) ==
PROVIDERS: PCP Family Medicine; Referring Provider Surgery; Visit Provider Surgery
PROC: 0DJD8ZZ Inspection of Lower Intestinal Tract, Via Natural or Artificial Opening Endoscopic (ICD-10-PCS; CPT 45378; principal; 2024-01-03 08:15)
DX: Z12.11 Encounter for screening for malignant neoplasm of colon (principal); Z86.010 Personal history of colon polyps; K64.8 Other hemorrhoids
CPT/HCPCS: G0105; J2704

== ENCOUNTER 2024-04-24 13:14 | Emergency (ER) | payer MEDICARE, SELFPAY ==
[2024-04-24] VITALS (12 sets, daily range): BP systolic 139–174; BP diastolic 79–94; PULSE 50–68; RESP 13–23; TEMP 36.6; O2SAT 95–98; BMI 26.6
--- NOTE | 2024-04-24 14:20 | DI.RAD.S_ITS ---
PROCEDURE: XR CHEST 1V INDICATIONS: chest pain TECHNIQUE: One view of the chest was acquired. COMPARISON: [facility], CR, XR CHEST 1V, 09/16/2022, 10:21. FINDINGS: Surgical changes and devices: None. Lungs and pleura: Lungs are clear. No pleural effusions or pneumothorax. Mediastinum: Mediastinal contours appear normal. Heart size is mildly enlarged as before. Bones and chest wall: No suspicious bony lesions. Overlying soft tissues appear unremarkable. IMPRESSION: No acute cardiopulmonary abnormality is seen. Dictated by: Shirin Adam M.D. on 04/24/2024 at 15:35 Approved by: Shirin Adam M.D. on 04/24/2024 at 15:36
--- NOTE | 2024-04-24 14:20 | DI.CT.S_ITS ---
PROCEDURE: CT HEAD/BRAIN WO CON INDICATIONS: feels foggy TECHNIQUE: Noncontrast 4.5 mm thick angled axial sections acquired from the foramen magnum to the vertex, with coronal and sagittal reformats. For radiation dose reduction, the following was used: automated exposure control, adjustment of mA and/or kV according to patient size. COMPARISON: [facility], CT, HEAD WITHOUT CONTRAST, 02/09/2016, 19:19. [facility], CT, CT HEAD/BRAIN WO CON, 04/22/2019, 15:20. FINDINGS: Image quality: Diagnostic. CSF spaces: Basal cisterns are patent. No extra-axial fluid collections. The ventricles are symmetric in size and shape. Brain: No intracranial bleeds or masses. There is cerebral volume loss for age, with resultant ventricular and sulcal prominence. There are periventricular and deep white matter chronic small vessel ischemic changes. There is intracranial internal carotid artery atherosclerosis. Skull and face: Calvarium and visualized facial bones appear intact, without suspicious lesions. Sinuses: Visualized sinuses and mastoids are clear. IMPRESSION: Noncontrast head CT within normal limits for age, with note made of brain parenchymal volume loss and chronic small vessel ischemic change. Dictated by: Lauro Camara M.D. on 04/24/2024 at 13:53 Approved by: Lauro Camara M.D. on 04/24/2024 at 13:54
--- NOTE | 2024-04-24 14:38 | EKG_ITS ---
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
[2024-04-24 14:44] LABS: Add Manual Diff / Slide Review NO; Basophils Absolute Auto 0 /uL (0-100); Basophils Percent Auto 0.8 % (0-2); Eosinophils Absolute Auto 200 /uL (0-450); Eosinophils Percent Auto 4.5 % (2-4); Hematocrit 40.9 % (41-53); Hemoglobin 14.2 g/dL (13.5-17.5); Lymphocytes Absolute Auto 2100 /uL (1100-4500); Lymphocytes Percent Auto 45.6 % (25-40); Mean Corpuscular HGB Conc 34.6 % (30-36); Mean Corpuscular Hemoglobin 33.8 PG (26-34); Mean Corpuscular Volume 97.7 fL (80-100); Monocytes Absolute Auto 400 /uL (0-900); Monocytes Percent Auto 9.7 % (3-14); Neutrophils Absolute Auto 1800 /uL (1500-7000); Neutrophils Percent Auto 39.4 % (50-75); Platelet Count 156 X10^3/uL (150-400); Red Blood Cell Count 4.19 X10^6/uL (4.5-5.9); Red Cell Distribution Width 12.6 % (11.6-14.8); White Blood Cell Count 4.6 X10^3/uL (4.5-11.0)
[2024-04-24 15:03] LABS: Alanine Aminotransferase 19 IU/L (<50); Albumin Globulin Ratio 1.4 (1.0-2.8); Alkaline Phosphatase 67 U/L (38-126); Aspartate Aminotransferase 27 IU/L (17-59); Bilirubin Total 1.3 mg/dL (0.2-1.3); Blood Urea Nitrogen 17 mg/dL (9-20); Calcium 8.6 mg/dL (8.4-10.2); Carbon Dioxide 26 mmol/L (22-32); Chloride 108 mmol/L (98-107); Creatine Kinase 206 U/L (55-170); Estimated Glomerular Filt Rate > 60 mL/min (>60); Globulin 2.8 g/dL (1.7-4.1); Glucose 90 mg/dL (80-110); HEMOLYSIS < 15 (0-50); Lipase 82 U/L (23-300); Potassium 4.1 mmol/L (3.4-5.1); Sodium 136 mmol/L (137-145); Total Protein 6.8 g/dL (6.3-8.2)
--- NOTE | 2024-04-24 15:05 | DI.CT.S_ITS ---
PROCEDURE: CT HEAD/BRAIN WO CON INDICATIONS: FEELS FOGGY TECHNIQUE: Noncontrast 4.5 mm thick angled axial sections acquired from the foramen magnum to the vertex, with coronal and sagittal reformats. For radiation dose reduction, the following was used: automated exposure control, adjustment of mA and/or kV according to patient size. COMPARISON: [facility], MR, MR HEAD/BRAIN WO CON, 04/22/2019, 18:37. [facility], CR, XR CHEST 1V, 04/24/2024, 14:47. [facility], CT, CT HEAD/BRAIN WO CON, 04/22/2019, 15:20. FINDINGS: Image quality: Diagnostic. CSF spaces: Basal cisterns are patent. No extra-axial fluid collections. The ventricles are symmetric in size and shape. Brain: No intracranial bleeds or masses. There is cerebral volume loss for age, with resultant ventricular and sulcal prominence. There are periventricular and deep white matter chronic small vessel ischemic changes. There is intracranial internal carotid artery atherosclerosis. Skull and face: Calvarium and visualized facial bones appear intact, without suspicious lesions. Sinuses: Visualized sinuses and mastoids are clear. IMPRESSION: Normal noncontrast head CT for age, with brain parenchymal volume loss and chronic small vessel ischemic change seen. Dictated by: Lauro Camara M.D. on 04/24/2024 at 14:14 Approved by: Lauro Camara M.D. on 04/24/2024 at 14:16
[2024-04-24 15:14] LABS: Troponin I < 0.012 ng/mL (0.01-0.034)
[2024-04-24 15:19] LABS: Procalcitonin 0.051 ng/mL (<0.5)
[2024-04-24] MEDS: SODIUM CHLORIDE 0.9% 1,000 ML 150 ML IV (15:42)
--- NOTE | 2024-04-24 17:11 | ED.DIZZY ---
HPI - Dizziness General Chief Complaint: Dizziness Stated Complaint: dizziness Time Seen by Provider: 04/24/24 14:20 Source: patient Mode of arrival: Ambulatory History of Present Illness HPI Narrative: Patient is a 89-year-old male history of hyperlipidemia and recurrent episodes of syncope. He been worked up for this previously he has been seen by Cardiology about 3 years ago, he reports that everything has been checked out. Today he was driving in his car when he got dizzy he pulled over to the side. He let but dizziness pass. And then he started driving again. He says it lasted for about 20 minutes but started quickly resolving. He now reports that he is headache and brain fog. No numbness tingling or weakness. He denies any sort of chest pain or palpitations. He felt like his normal self this morning. Yesterday he was outside in the hot sun raking [employer]s. He has not very good about drinking water. He has no focal deficits or complaints today. He now been in the emergency department for about 3-1/2 hours and is already feeling a lot better. Related Data Home Medications Medication Instructions Recorded Confirmed atorvastatin 20 mg tablet 20 mg PO DAILY 04/22/19 01/03/24 Previous Rx's Medication Instructions Recorded Parking Permit... See Rx Instructions .Route 01/28/21 .COMPLEX #1 unit alfuzosin 10 mg tablet,extended 10 mg PO DAILY #90 tabs 12/13/23 release 24 hr sildenafil (pulm.hypertension) 20 20 mg PO .daily as needed #60 tabs 12/13/23 mg tablet Allergies Allergy/AdvReac Type Severity Reaction Status Date / Time No Known Drug Allergies Allergy Verified 04/24/24 13:23 Patient History Medical History (Updated 04/24/24 @ 17:29 by Annie Mathews DO) BPH w urinary obs/LUTS Numbness of feet Bilateral chronic knee pain Insomnia History of melanoma Elevated PSA Erectile dysfunction Family history of prostate cancer Skin cancer Arthritis Constipation Vitamin D deficiency Near syncope Spinal stenosis, lumbar Diverticulosis of large intestine without perforation or abscess with bleeding (09/30/17) Tubular adenoma of colon (09/30/17) Vertigo Surgical History Hx of colonoscopy with polypectomy H/O: vasectomy Status post spinal surgery Status post hernia repair Status post appendectomy Social History Smoking Status: Former smoker alcohol intake: current Smoking Status: Former smoker alcohol intake frequency: holidays/special occasions only Substance Use Type: does not use Exam Initial Vital Signs Initial Vital Signs: Vital Signs Temperature 97.8 F 04/24/24 13:21 Pulse Rate 68 04/24/24 13:21 Respiratory Rate 16 04/24/24 13:21 Blood Pressure 153/94 H 04/24/24 13:21 Pulse Oximetry 98 04/24/24 13:21 Oxygen Delivery Method Room Air 04/24/24 13:21 GENERAL: Alert very pleasant 89-year-old male and in no acute distress. HEENT: Head atraumatic,EOMI, pupils reactive, face symmetric, moist mucous membranes CARDIOVASCULAR: Regular rate and rhythm without murmurs, rubs or gallops. RESPIRATORY: Breath sounds equal bilaterally, no wheezes rales or rhonchi. ABDOMEN: Soft, nontender. Normoactive bowel sounds all 4 quadrants. No guarding or rebound. EXTREMITIES: Normal range of motion, no clubbing or edema. Neurovascularly intact NEUROLOGICAL: Alert and oriented x4.Normal gait and speech. Cranial nerves II through XII grossly intact. SKIN: Warm, dry, no laceration, no petechiae, no rashes or lesions. Course Orders Ordered: ED Orders 04/24/24 14:20 CT head/brain wo con Stat XR chest 1V Stat EKG-12 Lead Stat 04/24/24 14:31 Complete Blood Count AUTO DIFF Stat Comprehensive Metabolic Panel Stat Lipase Stat Procalcitonin Stat Troponin & CK Cardiac Panel Stat 04/24/24 15:05 CT head/brain wo con Stat Discontinued Medications Sodium Chloride (Normal Saline 0.9%) 1,000 mls @ 150 mls/hr IV CONT RIMA Last Admin: 04/24/24 15:42 Dose: 150 mls/hr Documented By: LUNA Vital Signs Vital signs: Vital Signs - 8 hr 04/24/24 13:21 04/24/24 15:29 04/24/24 15:30 Temperature 97.8 F Pulse Rate 68 59 L 61 Respiratory Rate 16 Blood Pressure 153/94 H Pulse Oximetry 98 96 96 Oxygen Delivery Method Room Air 04/24/24 15:31 04/24/24 15:31 04/24/24 15:54 Temperature Pulse Rate 57 L Respiratory Rate 21 Blood Pressure 160/89 H 174/91 H Pulse Oximetry 96 Oxygen Delivery Method 04/24/24 15:54 04/24/24 16:00 04/24/24 16:00 Temperature Pulse Rate 60 55 L Respiratory Rate 23 22 Blood Pressure 155/79 H Pulse Oximetry 95 95 Oxygen Delivery Method 04/24/24 16:30 04/24/24 16:31 04/24/24 16:31 Temperature Pulse Rate 52 L 51 L Respiratory Rate 13 18 Blood Pressure 147/88 H Pulse Oximetry 97 96 Oxygen Delivery Method 04/24/24 17:00 04/24/24 17:01 04/24/24 17:01 Temperature Pulse Rate 50 L 51 L Respiratory Rate 21 19 Blood Pressure 139/83 Pulse Oximetry 96 97 Oxygen Delivery Method 04/24/24 17:30 04/24/24 17:31 04/24/24 17:31 Temperature Pulse Rate 52 L 51 L Respiratory Rate 22 21 Blood Pressure 146/89 H Pulse Oximetry 96 96 Oxygen Delivery Method MDM - Dizziness Lab Data 04/24/24 14:31 04/24/24 14:31 Labs: Lab Results 04/24/24 Range/Units 14:31 WBC 4.6 (4.5-11.0) X10^3/uL RBC 4.19 L (4.5-5.9) X10^6/uL Hgb 14.2 (13.5-17.5) g/dL Hct 40.9 L (41-53) % MCV 97.7 (80-100) fL MCH 33.8 (26-34) PG MCHC 34.6 (30-36) % RDW 12.6 (11.6-14.8) % Plt Count 156 (150-400) X10^3/uL Neut % (Auto) 39.4 L (50-75) % Lymph % (Auto) 45.6 H (25-40) % [place] % (Auto) 9.7 (3-14) % Eos % (Auto) 4.5 H (2-4) % Baso % (Auto) 0.8 (0-2) % Neut # (Auto) 1800 (2308-8679) /uL Lymph # (Auto) 2100 (5731-4565) /uL Butler # (Auto) 400 (0-900) /uL Eos # (Auto) 200 (0-450) /uL Baso # (Auto) 0 (0-100) /uL Sodium 136 L (137-145) mmol/L Potassium 4.1 (3.4-5.1) mmol/L Chloride 108 H (98-107) mmol/L Carbon Dioxide 26 (22-32) mmol/L BUN 17 (9-20) mg/dL Creatinine 0.68 (0.66-1.25) mg/dL Estimated GFR > 60 (>60) mL/min BUN/Creatinine Ratio 25.0 H (6-22) Glucose 90 (80-110) mg/dL Calcium 8.6 (8.4-10.2) mg/dL Total Bilirubin 1.3 (0.2-1.3) mg/dL AST 27 (17-59) IU/L ALT 19 (<50) IU/L Alkaline Phosphatase 67 (38-126) U/L Total Creatine Kinase 206 H (55-170) U/L Troponin I < 0.012 (0.01-0.034) ng/mL Total Protein 6.8 (6.3-8.2) g/dL Albumin 4.0 (3.5-5.0) g/dL Globulin 2.8 (1.7-4.1) g/dL Albumin/Globulin Ratio 1.4 (1.0-2.8) Lipase 82 (23-300) U/L Procalcitonin 0.051 (<0.5) ng/mL Urine Dip Bedside Urine Glucose Negative Bedside Urine Bilirubin - Negative Bedside Urine Ketone - Negative Urine Specific [place] 1.02 Bedside Urine Occult Blood - Negative Bedside Urine pH 6.0 Bedside Urine Protein - Negative Bedside Urine Urobilinogen - Negative Bedside Urine Nitrite - Negative Bedside Urine Leukocytes - Negative Esterase Imaging Data CT scan - head: Radiologist's Impression: PROCEDURE: CT HEAD/BRAIN WO CON INDICATIONS: feels foggy TECHNIQUE: Noncontrast 4.5 mm thick angled axial sections acquired from the foramen magnum to the vertex, with coronal and sagittal reformats. For radiation dose reduction, the following was used: automated exposure control, adjustment of mA and/or kV according to patient size. COMPARISON: [facility], CT, HEAD WITHOUT CONTRAST, 02/09/2016, 19:19. [facility], CT, CT HEAD/BRAIN WO CON, 04/22/2019, 15:20. FINDINGS: Image quality: Diagnostic. CSF spaces: Basal cisterns are patent. No extra-axial fluid collections. The ventricles are symmetric in size and shape. Brain: No intracranial bleeds or masses. There is cerebral volume loss for age, with resultant ventricular and sulcal prominence. There are periventricular and deep white matter chronic small vessel ischemic changes. There is intracranial internal carotid artery atherosclerosis. Skull and face: Calvarium and visualized facial bones appear intact, without suspicious lesions. Sinuses: Visualized sinuses and mastoids are clear. IMPRESSION: Noncontrast head CT within normal limits for age, with note made of brain parenchymal volume loss and chronic small vessel ischemic change. Dictated by: Lauro Camara M.D. on 04/24/2024 at 13:53 Approved by: Lauro Camara M.D. on 04/24/2024 at 13:54 Chest x-ray: Radiologist's Impression: PROCEDURE: XR CHEST 1V INDICATIONS: chest pain TECHNIQUE: One view of the chest was acquired. COMPARISON: [facility], , XR CHEST 1V, 09/16/2022, 10:21. FINDINGS: Surgical changes and devices: None. Lungs and pleura: Lungs are clear. No pleural effusions or pneumothorax. Mediastinum: Mediastinal contours appear normal. Heart size is mildly enlarged as before. Bones and chest wall: No suspicious bony lesions. Overlying soft tissues appear unremarkable. IMPRESSION: No acute cardiopulmonary abnormality is seen. Dictated by: Shirin Adam M.D. on 04/24/2024 at 15:35 ECG Data Attestation: I personally reviewed and interpreted this ECG as follows: Prior ECG tracings: available for review Interpretation: Normal sinus rhythm rate 61 CT interval 176 QRS [address] changes similar to previous EKGs no ischemia MDM Narrative Medical decision making narrative: Patient 89-year-old male presents today with dizziness and brain fog. It sounds as though he has a history of vertigo he has been worked up for this before. He has had MRI in 2021, echocardiogram in 2020 I do not see carotid Dopplers or evaluation of the carotids maybe worthwhile as an outpatient Patient has been to the ED multiple times in for similar events. He is neurologically intact without any sort of focal deficits. Blood work has been reviewed: He has no leukocytosis no anemi, no electrolyte abnormalities glucose 90, lipase [address] no acute process, chest x-ray no acute process Patient has been getting small amount of IV fluids here symptoms have completely resolved. He historically has had very similar symptoms. At this time recommend that he stay hydrated that weather is due to be warm and hot. Of note, this patient did NOT have [address], it was put under the wrong patient. Discharge Plan Departure Patient Disposition: Home Clinical Impression: Near syncope Instructions: DI for Dizziness-Nonvertigo Activity Restrictions/Additional Instructions: *You have been diagnosed with near-syncope *What to do: At this time talk with your doctor about carotid evaluation. Please stay hydrated in the hot sun with water or Gatorade *Continue to take medications as directed *Follow up with your primary care provider in 2-3 days or call [phone] *Return to ER if you should have increasing dizziness lightheadedness chest pain passing or any new, worsening or concerning symptoms Prescriptions: No Action Parking Permit... See Rx Instructions .ROUTE .COMPLEX Qty: 1 0RF Rx Instructions: use as needed for parking atorvastatin 20 mg tablet 20 mg PO DAILY sildenafil (pulm.hypertension) 20 mg tablet 20 mg PO .daily as needed Qty: 60 5RF Rx Instructions: Take 4 tablets by mouth 1 hour before sexual activity as needed daily, and as directed. alfuzosin 10 mg tablet extended release 24 hr 10 mg PO DAILY Qty: 90 3RF Referrals: Moy Lyons DO [Primary Care Provider] - Stand Alone Forms: Patient Portal/API
== END 2024-04-24 17:50 | disposition home or self-care (01) ==
PROVIDERS: Emergency Provider Emergency Medicine; PCP Family Medicine
DX: R55 Syncope and collapse (principal); R07.9 Chest pain, unspecified; R42 Dizziness and giddiness
CPT/HCPCS: 36415; 70450; 71045; 80053; 81003; 82550; 83690; 84145; 84484; 85025; 93005; 99284

== ENCOUNTER → 2024-05-28 08:20 | Outpatient (CLI) | payer MEDICARE, SELFPAY | PROVIDERS: PCP Family Medicine; Referring Provider Specialist; Visit Provider Specialist | DX: N40.1 Benign prostatic hyperplasia with lower urinary tract symptoms (principal); N13.8 Other obstructive and reflux uropathy; R97.20 Elevated prostate specific antigen [PSA] | CPT/HCPCS: 36415; 84153; 84154 ==